=== PATIENT | male | born 1985 | race Asian ===

== ENCOUNTER 2017-09-07 14:26 | Outpatient (CLI) | payer OTHER ==
[2017-09-08 08:06] LABS: HEPATITIS B SURFACE AB Reactive (.)
[2017-09-09 10:09] LABS: VARICELLA ZOSTER IgG 953 index (Immune >165)
[2017-09-09 12:10] LABS: RUBELLA AB, IgG <0.90 index (Immune >0.99)
== END 2017-09-07 23:59 | disposition home or self-care (01) ==
LOC: LAB 14:26
DX: Z02.1 Encounter for pre-employment examination (principal)
CPT/HCPCS: 36415; 86706

== ENCOUNTER 2021-07-18 08:20 | Emergency (ER) | payer OTHER ==
[~2021-07-18] VITALS: Ht 177.8 cm; Wt 90.7 kg
--- NOTE | 2021-07-18 09:23 | NUR ---
PT WAS EVALUATED BY DR COOK. DR MADRID WAS CALLED ACCORDING TO DR COOK REQUEST, TO ASK DR MADRID TO ORDER LABS ON PT FROM SUB ACUTE UNIT.
--- NOTE | 2021-07-18 10:46 | NUR ---
PT WAS D/C'd TO HOME. D/C INSTRUCTIONS GIVEN TO THE PT BY DR COOK.
[2021-07-18 10:47] VITALS: BP 136/78
== END 2021-07-18 10:48 | disposition home or self-care (01) ==
LOC: ER 08:20
DX: S61.233A Puncture wound without foreign body of left middle finger without damage to nail, initial encounter (principal); W26.8XXA Contact with other sharp object(s), not elsewhere classified, initial encounter; Y93.F9 Activity, other caregiving; Y92.230 Patient room in hospital as the place of occurrence of the external cause; Y99.0 Civilian activity done for income or pay; Z77.21 Contact with and (suspected) exposure to potentially hazardous body fluids
CPT/HCPCS: 36415; 86704; 86706; 86803; 87806; A4663